=== PATIENT | male | born 1955 | race Caucasian/White ===

== ENCOUNTER 2018-12-06 09:12 | Inpatient (IN) ==
[2018-11-29 13:56] LABS: HEMATOCRIT 43.4 % (42.0-52.0); HEMOGLOBIN 14.7 g/dL (14.0-18.0); MCH 30.7 PG (27-31); MCHC 33.9 g/dL (33-37); MCV 90.6 FL (81-99); MPV 8.9 FL (7.4-10.4); RBC 4.79 XMIL (4.7-6.1); RDW 14.3 % (11.5-14.5); WBC 8.43 X1000 (4.8-10.8)
[2018-11-29 14:13] LABS: AGAP 11; BUN 10 mg/dL (8-22); CALCIUM 9.3 mg/dL (8.8-10.2); CHLORIDE 97 mmol/L (98-107); COSMO 285; CREATININE 0.6 mg/dL (0.7-1.2); ESTIMATED GFR > 60; GLUCOSE 255 mg/dL (70-104); POTASSIUM 4.1 mmol/L (3.5-5.1); SODIUM 139 mmol/L (136-145); TCO2 31 mmol/L (25-35)
[2018-12-06] MEDS ORDERED: NORCURON ONE (09:19)
[2018-12-06] MEDS ORDERED: QUELICIN (DOSE) ONE (09:19)
[2018-12-06] MEDS ORDERED: SODIUM CHLORIDE 0.9% 10 ML ONE (09:19)
[2018-12-06] MEDS ORDERED: DIPRIVAN 1% ONE (09:20)
[2018-12-06] MEDS ORDERED: REGLAN ONE (09:34)
[2018-12-06] MEDS ORDERED: PEPCID ONE (09:34)
[2018-12-06] MEDS ORDERED: LR 1,000 ML ONE (09:35)
[2018-12-06] MEDS ORDERED: INVANZ 1 GM/NS 1 GM/50 ML IVPB ONE (09:35)
[2018-12-06] MEDS ORDERED: ENTEREG ONE (09:35)
[2018-12-06] MEDS ORDERED: ZOFRAN ONE (09:55)
[2018-12-06] MEDS ORDERED: DECADRON ONE (09:55)
[2018-12-06] MEDS ORDERED: TORADOL ONE ×2 (09:55→12:10)
[2018-12-06] MEDS ORDERED: MARCAINE 0.5% ONE (10:33)
[2018-12-06] MEDS ORDERED: EXPAREL 1.3% ONE (10:33)
[2018-12-06] MEDS ORDERED: SODIUM CHLORIDE 0.9% ONE (10:35)
[2018-12-06] MEDS ORDERED: FENTANYL ONE (11:23)
[2018-12-06] MEDS ORDERED: ROBINUL ONE (12:23)
[2018-12-06] MEDS ORDERED: NEOSTIGMINE ONE (12:24)
[2018-12-06 13:01] LABS: URINE SOURCE CATH
[2018-12-06] MEDS ORDERED: NS 1,000 ML ONE (13:04)
[2018-12-06 13:13] LABS: BILIRUBIN URINE NEGATIVE (NEGATIVE); BLOOD URINE MODERATE (NEGATIVE); COLOR YELLOW; GLUCOSE URINE TRACE mg/dL (NEGATIVE); KETONE URINE 10 mg/dL (NEGATIVE); LEUKOCYTES URINE NEGATIVE (NEGATIVE); NITRITE URINE NEGATIVE (NEGATIVE); PH URINE 5.5; PROTEIN URINE 30 mg/dL (NEGATIVE); SP GRAVITY URINE 1.016; TURBIDITY URINE CLEAR (CLEAR); UR EPITHELIAL CELLS <10 /HPF (<10); URINE BACTERIA NEGATIVE /HPF; URINE RBC 20-40 /HPF (<10); URINE WBC <10 /HPF (<10); UROBILINOGEN URINE NORMAL (NORMAL)
[2018-12-06] MEDS ORDERED: MORPHINE ONE ×2 (13:14→13:17)
[2018-12-06] MEDS ORDERED: LOVENOX SUBQ SCH (13:51)
[2018-12-06] MEDS ORDERED: DILAUDID IV PRN (13:51)
[2018-12-06] MEDS ORDERED: VENTOLIN HFA INH PRN (13:51)
[2018-12-06] MEDS: OFIRMEV 1000 MG/ISOTONIC SOLN 1,000 MG/100 ML BOTTLE IV SCH ×2 (18:22→23:22)
[2018-12-06] MEDS: NS 1,000 ML IV SCH ×2 (18:25→22:26)
[2018-12-06] MEDS: PERIDEX MT SCH (22:25)
[2018-12-06] MEDS: CRESTOR PO SCH (22:25)
[2018-12-06 22:55] LABS: HEMOGLOBIN 9.3 g/dL (14.0-18.0)
[2018-12-07] MEDS: NS 1,000 ML IV SCH ×4 (01:30→23:47)
[2018-12-07] MEDS: ZOFRAN IV PRN (01:35)
[2018-12-07 02:59] LABS: HEMATOCRIT 29.7 % (42.0-52.0); HEMOGLOBIN 9.9 g/dL (14.0-18.0)
[2018-12-07] MEDS ORDERED: SODIUM CHLORIDE 0.9% INJ ONE (03:21)
[2018-12-07] MEDS ORDERED: PROTONIX IV ONE (03:21)
--- NOTE | 2018-12-07 03:44 | OPERATIVE NOTE ---
PROCEDURE DATE: 12/06/2018 PROCEDURE PERFORMED: Open right hemicolectomy. SURGEON: Chucky Greer MD IRRIGATION EQUIPMENT MECHANIC: Enrico Johnson RN. PREOPERATIVE DIAGNOSIS: Polyp at the hepatic flexure. POSTOPERATIVE DIAGNOSIS: Polyp at the hepatic flexure. INDICATIONS FOR PROCEDURE: The patient is a 63-year-old sent to me by Dr. Laurent because of a large polyp at the hepatic flexure that she could not remove. It was inked. DESCRIPTION OF PROCEDURE: Satisfactory general endotracheal anesthesia was achieved. The abdomen was prepped and draped in a sterile fashion. A midline incision was made. We carried our incision through the subcutaneous tissue through the midline fascia, opening the fascia to the extent of the skin incision. Upon examining the colon the Dori ink area was identified in the proximal transverse colon near the hepatic flexure. We then incised the white line of Toldt mobilizing the retroperitoneal portion of the right colon bringing it up into the wound. We divided the omentum in its mid aspect, taking in to the mid aspect of the transverse colon. We entered the lesser sac and divided the greater omentum from the transverse colon toward the hepatic flexure, and we incised the hepatocolic ligament. We then chose a LEYDA 80-mm long blue cartridge and divided the transverse colon in its mid aspect at the level of the middle colic vessels. We then got a reload and divided the ilium also with a LEYDA 80 stapler. We then proceeded to divide the mesentery with the LigaSure, the major vessels were clamped and divided and suture ligated with 2-0 silk suture ligatures that included the ileocolic vessels and the right colic vessels. After that was accomplished and the mesentery was divided with the LigaSure, the right colon was handed off. We then laid the distal ilium next to the transverse colon and approximated them with 3-0 silk stitch, cut off the corners and then used again the LEYDA 80 blue cartridge to make a staple [id number] anastomosis. The open end of the bowel was then approximated with Allis and used a TA 90 blue cartridge to staple off the open end of the bowel. We inverted that staple line with interrupted 3-0 silks in a Lembert fashion, 1 additional 3-0 silk stitch was placed at the opposite end of the staple line. We changed gloves at this point and ridded ourselves of the contaminated instruments. We then closed the mesentery with 3-0 silk stitches. We returned the anastomosis and bowel inside the abdominal cavity including the residual omentum. Hemostasis was satisfactory in the right gutter. We then proceeded to close the peritoneum with a 2-0 chromic. We closed the fascia with a running #2 Prolene. The subcutaneous tissue was irrigated out and the skin was closed with jeff. A sterile dressing was applied. He tolerated the procedure satisfactorily and was sent to the recovery room in satisfactory condition. cc: MD Kaet Perez MD MTDD
[2018-12-07 04:12] LABS: HEMATOCRIT 29.3 % (42.0-52.0); HEMOGLOBIN 9.7 g/dL (14.0-18.0); MCH 30.5 PG (27-31); MCHC 33.1 g/dL (33-37); MCV 92.1 FL (81-99); RBC 3.18 XMIL (4.7-6.1); RDW 13.8 % (11.5-14.5); WBC 14.22 X1000 (4.8-10.8)
[2018-12-07] MEDS: OFIRMEV 1000 MG/ISOTONIC SOLN 1,000 MG/100 ML BOTTLE IV SCH ×2 (04:28→12:05)
[2018-12-07 04:41] LABS: INR 1.1; PROTIME 15.1 Seconds (11.0-16.0)
[2018-12-07 04:42] LABS: PTT 38.1 Seconds (22.3-41.8)
[2018-12-07 06:16] LABS: BASO# 0.02 X1000 (0.0-0.2); BASO% 0.1 % (0.0-0.8); HEMATOCRIT 28.2 % (42.0-52.0); HEMOGLOBIN 9.3 g/dL (14.0-18.0); LYMPH# 1.18 X1000 (1.2-3.4); LYMPH% 8.3 % (20.5-51.1); MCH 30.5 PG (27-31); MCV 92.5 FL (81-99); MONO% 9.9 % (1.7-9.3); MPV 9.3 FL (7.4-10.4); NEUT% 81.7 % (42.2-75.2); PLT 147 X1000 (130-400); RBC 3.05 XMIL (4.7-6.1); RDW 13.9 % (11.5-14.5)
[2018-12-07 06:50] LABS: AGAP 11; BUN 22 mg/dL (8-22); CALCIUM 7.2 mg/dL (8.8-10.2); CHLORIDE 106 mmol/L (98-107); COSMO 294; CREATININE 1.1 mg/dL (0.7-1.2); ESTIMATED GFR > 60; GLUCOSE 306 mg/dL (70-104); POTASSIUM 4.7 mmol/L (3.5-5.1); SODIUM 140 mmol/L (136-145); TCO2 23 mmol/L (25-35)
--- NOTE | 2018-12-07 08:14 | EKG Report ---
Test Performed on : 12/07/2018 03:39:10 AM Test Reason : Decreased BP Blood Pressure : / mmHG Vent. Rate : 091 BPM Atrial Rate : 091 BPM P-R Int : 142 ms QRS Dur : 080 ms QT Int : 378 ms P-R-T Axes : 045 053 029 degrees QTc Int : 464 ms Normal sinus rhythm. Normal ECG No previous ECGs available Confirmed by Dominga CHAVEZ, Messi Mckeon ([id number]) on 12/08/2018 10:40:28 AM
--- NOTE | 2018-12-07 09:02 | GENERAL SURGERY CONSULTATION ---
DATE: 12/07/2018 SUBJECTIVE: He has had some bloody bowel movements overnight, some marginal blood pressures. He has gotten a couple liters of fluid boluses with some marginal response. He is mentating well. He says he feels a little lightheaded, but denies any chest pain or shortness of breath currently. OBJECTIVE: Vital Signs: Pulse 90. Blood pressure systolics in the 90s. Urine output has been adequate. Abdomen: Soft. There is no peritonitis. Midline incision has minimal drainage. Integument: Warm and dry. There is no diaphoresis. LABORATORY DATA: Hematocrit was preoperatively 43. It was 28 postoperatively and is 29 now on second check. DIAGNOSTIC STUDIES: He has normal left ventricular function on an echocardiogram noted. He also had a stress test in July that shows no ischemia. ASSESSMENT AND PLAN: A 63-year-old gentleman likely bleeding from his anastomosis and had peritonitis on exam. His blood pressure improved following resuscitation. His last bowel movement was more dark and normal-appearing. Continue to monitor him closely with serial hematocrits. I have held his Lovenox in the morning. Continue his fluid resuscitation. He may ultimately require blood transfusion. I discussed this with the patient and his . Will check an EKG to make sure he does not have any cardiac etiology due to this. cc: MD Chucky Elizabeth MD
[2018-12-07] MEDS: PERIDEX MT SCH ×2 (12:04→20:08)
[2018-12-07] MEDS: ACTOS PO SCH ×2 (12:06→13:37)
[2018-12-07] MEDS: PRINIVIL PO SCH (13:37)
[2018-12-07] MEDS: CHANTIX PO SCH (14:34)
[2018-12-07] MEDS: ENTEREG PO SCH ×2 (14:34→20:09)
[2018-12-07] MEDS: DILAUDID IV PRN ×3 (16:33→23:10)
--- NOTE | 2018-12-07 19:09 | GENERAL SURGERY PROGRESS NOTE ---
DATE: 12/07/2018 Mr. Serrano is doing generally well. He is afebrile. Heart rate is 89 ,blood pressure 105/62. He has had no more rectal bleeding. His bandage of his abdominal wound is dry. Laboratory data shows his hemoglobin to be stable in the 9.7 range. Hematocrit 29. He has received some fresh frozen and has received some platelets. His urine output has been satisfactory. ASSESSMENT/PLAN: We will cut his IV rate down to 100. He is to stay on mechanical prophylaxis since we cannot give the Lovenox. We will recheck his hemoglobin tomorrow. Dr. Russell is to cover the weekend. cc: Chucky Greer MD
[2018-12-07] MEDS: CRESTOR PO SCH (20:09)
[2018-12-08] MEDS: DILAUDID IV PRN ×3 (02:36→22:41)
[2018-12-08 05:48] LABS: BASO# 0.06 X1000 (0.0-0.2); BASO% 0.7 % (0.0-0.8); EOS# 0.11 X1000 (0.0-0.7); EOS% 1.2 % (0.0-10.0); HEMATOCRIT 21.6 % (42.0-52.0); IMM GRAN# 0.03 X1000 (0.0-0.04); IMM GRAN% 0.3 % (0.0-0.5); LYMPH# 1.54 X1000 (1.2-3.4); LYMPH% 17.3 % (20.5-51.1); MCH 30.3 PG (27-31); MCHC 32.4 g/dL (33-37); MCV 93.5 FL (81-99); MONO# 0.73 X1000 (0.11-0.59); MONO% 8.2 % (1.7-9.3); NEUT# 6.42 X1000 (1.4-6.5); NEUT% 72.3 % (42.2-75.2); PLT 138 X1000 (130-400); RBC 2.31 XMIL (4.7-6.1); WBC 8.89 X1000 (4.8-10.8)
[2018-12-08 06:08] LABS: AGAP 9; BUN 11 mg/dL (8-22); CALCIUM 7.2 mg/dL (8.8-10.2); CHLORIDE 104 mmol/L (98-107); COSMO 277; CREATININE 0.5 mg/dL (0.7-1.2); ESTIMATED GFR > 60; GLUCOSE 173 mg/dL (70-104); POTASSIUM 3.9 mmol/L (3.5-5.1); SODIUM 137 mmol/L (136-145); TCO2 24 mmol/L (25-35)
[2018-12-08] MEDS: NS 1,000 ML IV SCH ×2 (10:10→22:49)
[2018-12-08] MEDS: ENTEREG PO SCH ×2 (10:10→23:29)
[2018-12-08] MEDS: PERIDEX MT SCH ×2 (10:10→23:29)
[2018-12-08] MEDS: CHANTIX PO SCH ×2 (10:11→10:13)
[2018-12-08] MEDS: PRINIVIL PO SCH (10:11)
[2018-12-08] MEDS: ACTOS PO SCH (10:11)
--- NOTE | 2018-12-08 12:54 | PROGRESS NOTE ---
DATE: 12/08/2018 SUBJECTIVE: Mr. Chele Serrano is now postop day 2 from an open right colon resection per Dr. Greer for a large polyp. His postoperative convalescence has been complicated by a lower GI bleed probably from the anastomosis. He is now anemic with a hematocrit of 21%. OBJECTIVE: His heart rate is 98, blood pressure is 98/54, O2 saturation 92% nasal cannula O2. He is afebrile on no antibiotics. He is awake, cooperative. He has been in a chair, but got a little bit dizzy. He still has a Van catheter tube in place. His white blood cell count is normal. Hematocrit is 21%, BUN and creatinine are 11 and 0.5. Coagulation studies are within normal limits. His abdominal incision is dressed. His abdomen is soft. PLAN: We will probably remove his Van catheter tube tomorrow morning as long as there is no evidence of lower GI bleed. He is on Entereg protocol. He has had no diet, but probably can start some clear liquids. We will follow his hematocrit. cc: MD Chucky Navas MD
[2018-12-08] MEDS ORDERED: SODIUM CHLORIDE 0.9% INJ ONE (14:07)
[2018-12-08 14:38] LABS: HEMATOCRIT 22.1 % (42.0-52.0); HEMOGLOBIN 7.2 g/dL (14.0-18.0)
--- NOTE | 2018-12-08 19:14 | PROGRESS NOTE ---
DATE: 12/08/2018 I was notified by the nurses this afternoon that Mr. Serrano had passed some more clots and blood per rectum. I knew that his hematocrit was low this morning, so we checked another hematocrit and actually it had not fallen, but I feel that he should get 2 units of packed red blood cells. I also spoke with Kevan Aguilar, our GI physician master control operator, about Mr. Serrano's ongoing lower GI bleed, probably from the stapled anastomosis status post open right hemicolectomy. I specifically spoke to him about possible colonoscopy in attempts at stopping this bleeding if it persists. He said that he will evaluate the patient. cc: MD Chucky Navas MD
[2018-12-08 20:04] LABS: BASO# 0.06 X1000 (0.0-0.2); BASO% 0.7 % (0.0-0.8); EOS# 0.12 X1000 (0.0-0.7); EOS% 1.3 % (0.0-10.0); HEMATOCRIT 26.4 % (42.0-52.0); HEMOGLOBIN 8.6 g/dL (14.0-18.0); IMM GRAN# 0.02 X1000 (0.0-0.04); IMM GRAN% 0.2 % (0.0-0.5); LYMPH# 1.49 X1000 (1.2-3.4); LYMPH% 16.5 % (20.5-51.1); MCH 28.8 PG (27-31); MCHC 32.6 g/dL (33-37); MCV 88.3 FL (81-99); MONO# 0.84 X1000 (0.11-0.59); MONO% 9.3 % (1.7-9.3); MPV 8.7 FL (7.4-10.4); NEUT# 6.49 X1000 (1.4-6.5); PLT 153 X1000 (130-400); RBC 2.99 XMIL (4.7-6.1); RDW 15.3 % (11.5-14.5); WBC 9.02 X1000 (4.8-10.8)
[2018-12-08] MEDS: CRESTOR PO SCH (23:29)
[2018-12-08] MEDS: PROTONIX IV SCH (23:30)
--- NOTE | 2018-12-09 00:22 | CONSULTATION ---
DATE OF CONSULTATION: 12/08/2018 REQUESTING PHYSICIAN: Bernadette Russell MD. PRIMARY LGSW: Kate Laurent MD. DICTATING PHYSICIAN: Kevan Aguilar MD REASON FOR CONSULTATION: GI bleeding. HISTORY OF PRESENT ILLNESS: Mr. Serrano is a 63-year-old male who was admitted on 12/06/2018 and had open right hemicolectomy by Dr. Greer. Postoperatively, he had rectal bleeding. Admission level hematocrit was not recorded although the hematocrit on 11/29/2017 was 43.4. He has dropped it down to 22.1. He will be given a blood transfusion today. He denies any nausea or vomiting. He had an EGD done and colonoscopy [address] Laurent when there was a large polyp noted in the hepatic flexure, for which he was sent for right hemicolectomy. PAST MEDICAL HISTORY: Bilateral carotid artery stenosis. Smoker. FAMILY HISTORY: Arthritis and asthma and heart disease in mother, diabetes in brother, and high cholesterol and hypertension in his brother. SOCIAL HISTORY: He drinks 7 soft drinks or more per day. No history of alcohol or drug abuse. He is an every-day smoker. He smokes 1 pack a day, started smoking at age 18. The patient is . He has a very supportive present at the bedside. PAST SURGICAL HISTORY: Cataract surgery, bilateral colon polyp removal and colonoscopy, tonsillectomy, vasectomy, and recent open right hemicolectomy on 12/06/2018. ALLERGIES: Penicillin. MEDICATIONS IN THE HOSPITAL: Crestor, Dilaudid, albuterol inhaler, alvimopan 200 mg p.o. b.i.d., chlorhexidine 15 mL mouthwash b.i.d., lisinopril 5 mg p.o. daily, normal saline 100 mL/hr, Zofran 4 mg IV q.6 hours as needed, Protonix 40 mg IV b.i.d., Actos 15 mg p.o. daily, Chantix 1 mg p.o. daily. The patient is currently on clear liquid diet. REVIEW OF SYSTEMS: Denies any current fevers, rigors, chills, chest pain, shortness of breath, dyspnea at rest. Denies any vomiting blood. Denies other abdominal discomfort from recent surgery. Denies any neurological complaints. PHYSICAL EXAMINATION: Vital signs: Temperature 98.4 degrees, pulse of 99, respiratory rate 19, blood pressure 118/49, saturating 92% on 3 L nasal cannula. Body weight of 257 pounds 7 ounces. BMI of 40.3 kg/m2. General appearance: Obese, lying in bed, in no acute distress. HEENT: Pale conjunctivae. No icterus. Pupils equal, reactive to light. Neck: Supple. Abdomen: Protuberant, obese. Midline surgical dressing. Discomfort in the abdomen from surgery. Extremities: No cyanosis, clubbing. Neurologic: He is awake, alert, oriented. LABORATORIES: Hemoglobin is 7.2, hematocrit 22.9, white count of 8.8, platelet count of 138,000. PT of 15.1, INR 1.1, PTT of 38.1. Sodium of 137, potassium 3.9, chloride 104, bicarb 24, anion gap 9, BUN of 11, creatinine of 0.5, glucose of 173, calcium 9.2. Urinalysis showed positive protein, positive blood, and positive ketones. IMPRESSION AND PLAN: 1. Gastrointestinal bleeding in post operative setting, suspect anastomotic/ suture line bleeding. 2. The patient is status post right hemicolectomy on 12/06/2018. 3. History of colon polyps. 4. Obesity. 5. Chronic smoker. 6. Anemia. RECOMMENDATIONS: 1. We will give the patient a clear liquid diet. We will type and cross and transfuse to keep the hematocrit more than 27% He jaqueline receive 2 units of blood transfusion now. We will check serial hematocrits and transfuse as needed. We will keep him on Protonix twice daily. 2. I have spoken with the patient and family with Dr. Russell. If the patient continues to bleed, then we may have to do endoscopic intervention in the form of colonoscopy. The colonoscopy in this setting has a high risk of causing anastomotic leak because of recent surgery. Risks benefits indication and alternatives to colonoscopy were explained to the patient and family and all questions were answered. If he continues to have hemorrhage and hemodynamic instability, then we may have to consider interventional radiology-directed angiography versus surgical intervention. 3. Above plan of care was discussed with the patient and family and all questions answered. Please call if any questions. I also spoke with Dr. Russell. Dr. Laurent will return on Monday to resume care. cc: MD Chucky Hardy MD Lynn R. Buckner, MD Lindsay Smith MTDD
[2018-12-09] MEDS ORDERED: DIPRIVAN 1% ONE ×2 (07:59→08:20)
[2018-12-09] MEDS ORDERED: XYLOCAINE-MPF 2% ONE (07:59)
[2018-12-09] MEDS ORDERED: FENTANYL ONE ×2 (08:08→08:11)
--- NOTE | 2018-12-09 10:06 | Diag Imaging Result Doc PS360 ---
EXAM: KUB ABDOMEN INDICATION: Post colonoscopy TECHNIQUE: 2 views COMPARISON: None. FINDINGS: There are a few mildly gas distended loops of small bowel suggesting possible mild postsurgical ileus. There are midline skin jeff indicating a recent prior laparotomy. No large volume free abdominal gas is appreciated given the limitations of a supine radiograph. IMPRESSION: Mildly gas distended loops of small bowel that probably represents a mild postsurgical ileus. Electronically signed by Edy Wei 12/09/2018 10:04 AM
--- NOTE | 2018-12-09 10:17 | OPERATIVE NOTE ---
PROCEDURE DATE: 12/09/2018 DICTATING PHYSICIAN: Dr. Russell. PRIMARY CARE DOCTOR: Dr. Laurent. PROCEDURE: 1. Ileal colonoscopy with hemostasis treating rectal bleeding. Required 4 weeks blood transfusion. 2. History of right open hemicolectomy done on 12/06/2018. 3. Anemia. POSTOPERATIVE DIAGNOSIS: 1. 1 is bleeding at the anastomosis suture line. This was treated with 4 hemoclips successfully, and there is a questionable remnant polyp or pseudopolyp at the anastomosis with overlying erythema and superficial ulceration. 2. Old blood throughout the colon was lavaged. Retroflexion in the rectum revealed internal hemorrhoids. ESTIMATED BLOOD LOSS: Minimal. COMPLICATIONS: None. ANESTHESIA: Monitored anesthesia care per the anesthesiologist. SPECIMENS: None. DESCRIPTION OF PROCEDURE IN DETAIL: After informed consent from the patient explaining the risks, benefits, indications, and alternatives to the procedure, the patient prepared for colonoscopy. The risks of the procedure, including infection, bleeding, pain, trauma to the surrounding structures, perforation, , were explained to the patient among others, and he acknowledged this and agreed to proceed. This is noted to the operating room. He was turned in a left lateral position. Rectal exam was performed, which were normal. No masses felt. No blood on the examining finger. The colonoscope was removed all the way to the anastomosis. The anastomosis was identified. There was evidence of a remnant polyp or a pseudopolyp. After anastomosis with overlying erythema and superficial ulceration, there was a suture line oozing noted. This was treated with 4 hemoclips placed successfully and hemostasis achieved. The terminal ilium appeared normal. The remaining colon had evidence of old blood with clots which was lavaged. Retroflexion in the rectum revealed internal hemorrhoids grade 2. The air was withdrawn. The patient tolerated the procedure well and was monitored in the OR in stable condition. Dr. Russell was present during the entire procedure. The patient was taken to the recovery room from the OR in stable condition. RECOMMENDATIONS: 1. Patient will be on ice chips today. 2. We will start him on previous medications. 3. We will start him on iron and multivitamin. 4. We will transfuse as needed to keep hematocrit more than 27%. 5. If the patient continues to have bleeding, then he may need surgical revision. 6. We will repeat the colonoscopy in 3 months to review the anastomosis site for any remnant polyps. 7. The above plans were discussed with the patient's family and all questions answered. Please call us with any further questions. cc: MD Chucky Hardy MD Lynn R. Buckner, MD Jeanette Keith, MD MTDD
--- NOTE | 2018-12-09 10:17 | PROGRESS NOTE ---
DATE: 12/09/2018 HISTORY: Mr. Serrano overnight continued a lower GI bleed. He has now had a total 4 units of packed red blood cells. I asked Dr. Aguilar to see him yesterday and Dr. Aguilar performed a colonoscopy this morning. I was present in the GI suite as he was performing this procedure. It appears that Mr. Serrano had some oozing from the stapled anastomosis. It was treated with 4 clips and I felt that these clips were helpful. After the procedure, he went back to his room. OBJECTIVE: General: He is awake. Abdomen: Distended but not overly tender. His incision seems to be healing well. Vital Signs: His heart rate is 82, blood pressure 136/51, O2 saturation 97%. He is afebrile. Genitourinary: He still has a Van catheter tube in place and we will leave that also. PLAN: We will just keep him on ice chips and water today, and follow him clinically, and follow his blood counts. We do not have him on Lovenox. cc: MD Chucky Navas MD
[2018-12-09] MEDS: NS 1,000 ML IV SCH ×2 (10:47→16:21)
[2018-12-09] MEDS: PERIDEX MT SCH ×2 (10:48→20:32)
[2018-12-09] MEDS: PROTONIX IV SCH ×2 (10:49→20:31)
[2018-12-09] MEDS: ENTEREG PO SCH ×2 (10:49→20:30)
[2018-12-09] MEDS: ACTOS PO SCH (10:49)
[2018-12-09 10:59] LABS: BASO# 0.04 X1000 (0.0-0.2); BASO% 0.4 % (0.0-0.8); EOS# 0.12 X1000 (0.0-0.7); EOS% 1.3 % (0.0-10.0); HEMATOCRIT 31.9 % (42.0-52.0); HEMOGLOBIN 10.6 g/dL (14.0-18.0); IMM GRAN# 0.03 X1000 (0.0-0.04); IMM GRAN% 0.3 % (0.0-0.5); LYMPH# 0.86 X1000 (1.2-3.4); LYMPH% 9.5 % (20.5-51.1); MCH 29.2 PG (27-31); MCHC 33.2 g/dL (33-37); MCV 87.9 FL (81-99); MONO# 0.75 X1000 (0.11-0.59); MONO% 8.3 % (1.7-9.3); MPV 9.1 FL (7.4-10.4); NEUT# 7.27 X1000 (1.4-6.5); NEUT% 80.2 % (42.2-75.2); PLT 148 X1000 (130-400); RBC 3.63 XMIL (4.7-6.1); RDW 15.1 % (11.5-14.5); WBC 9.07 X1000 (4.8-10.8)
[2018-12-09 13:47] LABS: BASO# 0.04 X1000 (0.0-0.2); BASO% 0.5 % (0.0-0.8); EOS# 0.12 X1000 (0.0-0.7); EOS% 1.4 % (0.0-10.0); HEMATOCRIT 30.8 % (42.0-52.0); HEMOGLOBIN 10.3 g/dL (14.0-18.0); IMM GRAN# 0.02 X1000 (0.0-0.04); IMM GRAN% 0.2 % (0.0-0.5); LYMPH# 1.11 X1000 (1.2-3.4); LYMPH% 13.2 % (20.5-51.1); MCH 29.3 PG (27-31); MCHC 33.4 g/dL (33-37); MCV 87.7 FL (81-99); MONO# 0.64 X1000 (0.11-0.59); MONO% 7.6 % (1.7-9.3); MPV 8.7 FL (7.4-10.4); NEUT# 6.46 X1000 (1.4-6.5); NEUT% 77.1 % (42.2-75.2); PLT 156 X1000 (130-400); RBC 3.51 XMIL (4.7-6.1); WBC 8.39 X1000 (4.8-10.8)
[2018-12-09] MEDS: CHANTIX PO SCH (14:21)
[2018-12-09] MEDS: PRINIVIL PO SCH (14:22)
[2018-12-09 19:49] LABS: BASO# 0.05 X1000 (0.0-0.2); BASO% 0.6 % (0.0-0.8); EOS# 0.19 X1000 (0.0-0.7); EOS% 2.2 % (0.0-10.0); HEMATOCRIT 30.9 % (42.0-52.0); HEMOGLOBIN 10.4 g/dL (14.0-18.0); IMM GRAN# 0.02 X1000 (0.0-0.04); IMM GRAN% 0.2 % (0.0-0.5); LYMPH# 1.55 X1000 (1.2-3.4); LYMPH% 18.2 % (20.5-51.1); MCH 29.8 PG (27-31); MCHC 33.7 g/dL (33-37); MCV 88.5 FL (81-99); MONO# 0.86 X1000 (0.11-0.59); MONO% 10.1 % (1.7-9.3); MPV 8.8 FL (7.4-10.4); NEUT# 5.85 X1000 (1.4-6.5); NEUT% 68.7 % (42.2-75.2); PLT 167 X1000 (130-400); RBC 3.49 XMIL (4.7-6.1); WBC 8.52 X1000 (4.8-10.8)
[2018-12-09] MEDS: CRESTOR PO SCH (20:30)
[2018-12-09] MEDS: ICAR-C PO SCH (20:30)
[2018-12-09] MEDS: DILAUDID IV PRN (20:31)
[2018-12-10 02:29] LABS: BASO# 0.04 X1000 (0.0-0.2); BASO% 0.5 % (0.0-0.8); EOS# 0.22 X1000 (0.0-0.7); EOS% 2.7 % (0.0-10.0); HEMATOCRIT 31.2 % (42.0-52.0); HEMOGLOBIN 10.3 g/dL (14.0-18.0); IMM GRAN# 0.02 X1000 (0.0-0.04); IMM GRAN% 0.2 % (0.0-0.5); LYMPH# 1.39 X1000 (1.2-3.4); MCH 29.4 PG (27-31); MCV 89.1 FL (81-99); MONO# 0.72 X1000 (0.11-0.59); MONO% 8.8 % (1.7-9.3); MPV 8.4 FL (7.4-10.4); NEUT# 5.78 X1000 (1.4-6.5); NEUT% 70.8 % (42.2-75.2); PLT 172 X1000 (130-400); WBC 8.17 X1000 (4.8-10.8)
[2018-12-10] MEDS: NS 1,000 ML IV SCH ×2 (04:13→04:14)
[2018-12-10] MEDS: DILAUDID IV PRN ×2 (04:14→19:34)
[2018-12-10] MEDS ORDERED: SODIUM CHLORIDE 0.9% 10 ML ONE (07:16)
[2018-12-10 08:31] LABS: BASO# 0.04 X1000 (0.0-0.2); BASO% 0.5 % (0.0-0.8); EOS# 0.25 X1000 (0.0-0.7); EOS% 3.3 % (0.0-10.0); HEMATOCRIT 31.7 % (42.0-52.0); HEMOGLOBIN 10.5 g/dL (14.0-18.0); IMM GRAN# 0.04 X1000 (0.0-0.04); IMM GRAN% 0.5 % (0.0-0.5); LYMPH# 1.21 X1000 (1.2-3.4); LYMPH% 16.1 % (20.5-51.1); MCH 29.3 PG (27-31); MCHC 33.1 g/dL (33-37); MCV 88.5 FL (81-99); MONO# 0.64 X1000 (0.11-0.59); MONO% 8.5 % (1.7-9.3); MPV 8.5 FL (7.4-10.4); NEUT# 5.34 X1000 (1.4-6.5); NEUT% 71.1 % (42.2-75.2); PLT 188 X1000 (130-400); RBC 3.58 XMIL (4.7-6.1); RDW 14.9 % (11.5-14.5); WBC 7.52 X1000 (4.8-10.8)
[2018-12-10] MEDS: ICAR-C PO SCH ×2 (09:17→21:19)
[2018-12-10] MEDS: PERIDEX MT SCH ×2 (09:17→21:19)
[2018-12-10] MEDS: PROTONIX IV SCH ×2 (09:17→21:19)
[2018-12-10] MEDS: CENTRUM SILVER PO SCH (09:17)
[2018-12-10] MEDS: ENTEREG PO SCH ×2 (09:17→21:19)
[2018-12-10] MEDS: ACTOS PO SCH (09:17)
[2018-12-10] MEDS: PRINIVIL PO SCH (09:17)
[2018-12-10] MEDS: CHANTIX PO SCH (09:18)
[2018-12-10 16:09] LABS: BASO# 0.04 X1000 (0.0-0.2); BASO% 0.4 % (0.0-0.8); EOS# 0.25 X1000 (0.0-0.7); EOS% 2.7 % (0.0-10.0); HEMATOCRIT 32.1 % (42.0-52.0); HEMOGLOBIN 10.7 g/dL (14.0-18.0); IMM GRAN# 0.03 X1000 (0.0-0.04); IMM GRAN% 0.3 % (0.0-0.5); LYMPH# 1.17 X1000 (1.2-3.4); LYMPH% 12.8 % (20.5-51.1); MCH 29.4 PG (27-31); MCHC 33.3 g/dL (33-37); MCV 88.2 FL (81-99); MONO# 0.77 X1000 (0.11-0.59); MONO% 8.4 % (1.7-9.3); MPV 8.7 FL (7.4-10.4); NEUT# 6.89 X1000 (1.4-6.5); NEUT% 75.4 % (42.2-75.2); PLT 211 X1000 (130-400); RBC 3.64 XMIL (4.7-6.1); RDW 14.7 % (11.5-14.5); WBC 9.15 X1000 (4.8-10.8)
[2018-12-10] MEDS ORDERED: NS 1,000 ML IV SCH (17:45)
--- NOTE | 2018-12-10 18:50 | PROGRESS NOTE ---
DATE: 12/10/2018 DATE OF ROUNDS: 12/10/2018. SUBJECTIVE: The patient is a 63-year-old white male who was admitted for elective right hemicolectomy due to a large hepatic flexure polyp. Postop, he had rectal bleeding. He underwent endoscopy that was remarkable for bleeding at the anastomosis and residual polyp tissue, likely a second polyp. Today, he denies bleeding. He reports that he feels significantly better other than incisional abdominal pain. He is currently tolerating a clear liquid diet. He denies fevers, chills, nausea or vomiting. PHYSICAL EXAMINATION: Vital Signs: His blood pressure is 136/54, pulse 72, respirations 20, temp of 98.3. HEENT: Unremarkable. Pulmonary: Lungs are clear to auscultation with normal respiratory effort. Cardiovascular: Reveals regular rate and rhythm with no gallops or rubs. Abdomen: Soft with incisional tenderness. There are normoactive bowel sounds. There is no rebound or guarding. OBJECTIVE DATA: Reveals a hemoglobin of 10.7 with hematocrit of 32.1 and a white count of 9.15. He has 211,000 platelets. RECOMMENDATION: 1. Continue supportive care. 2. After discussion with Dr. Greer, we will advance his diet to a full liquid diet in the morning. 3. Continue Protonix 40 mg IV q.12 hours. 4. He will need an outpatient colonoscopy in approximately 3 to 6 months to remove the residual polyp tissue and to reassess the anastomosis. cc: MD Chucky Burrows MD Lindsay Smith
[2018-12-10] MEDS: CRESTOR PO SCH (21:19)
--- NOTE | 2018-12-10 21:50 | GENERAL SURGERY PROGRESS NOTE ---
DATE: 12/10/2018 It is 5:36 p.m. The events of the weekend are noted. Mr. Serrano says he has had no further bleeding since the colonoscopy yesterday. Today he is afebrile, heart rate 72, blood pressure 136/54. Denies any flatus or bowel movement today. White count 9000, hemoglobin 10.7, hematocrit 32. He has taken clear liquids this afternoon for the first time. The plan is to advance him to full liquids in the morning. We will remove his Van catheter tonight. cc: Chucky Greer MD
[2018-12-10 21:55] LABS: BASO# 0.05 X1000 (0.0-0.2); BASO% 0.6 % (0.0-0.8); EOS# 0.28 X1000 (0.0-0.7); EOS% 3.1 % (0.0-10.0); HEMATOCRIT 32.8 % (42.0-52.0); IMM GRAN# 0.04 X1000 (0.0-0.04); IMM GRAN% 0.4 % (0.0-0.5); LYMPH# 1.38 X1000 (1.2-3.4); LYMPH% 15.4 % (20.5-51.1); MCH 29.3 PG (27-31); MCHC 33.5 g/dL (33-37); MCV 87.5 FL (81-99); MONO# 0.69 X1000 (0.11-0.59); MONO% 7.7 % (1.7-9.3); MPV 8.9 FL (7.4-10.4); NEUT# 6.54 X1000 (1.4-6.5); NEUT% 72.8 % (42.2-75.2); PLT 227 X1000 (130-400); RBC 3.75 XMIL (4.7-6.1); RDW 14.6 % (11.5-14.5); WBC 8.98 X1000 (4.8-10.8)
[2018-12-10] MEDS: NORCO-10 PO PRN (22:44)
[2018-12-11 02:32] LABS: BASO# 0.03 X1000 (0.0-0.2); BASO% 0.4 % (0.0-0.8); EOS% 3.5 % (0.0-10.0); HEMATOCRIT 31.7 % (42.0-52.0); HEMOGLOBIN 10.6 g/dL (14.0-18.0); IMM GRAN# 0.04 X1000 (0.0-0.04); IMM GRAN% 0.5 % (0.0-0.5); LYMPH% 17.6 % (20.5-51.1); MCH 29.3 PG (27-31); MCHC 33.4 g/dL (33-37); MCV 87.6 FL (81-99); MONO# 0.72 X1000 (0.11-0.59); MONO% 8.5 % (1.7-9.3); MPV 8.5 FL (7.4-10.4); NEUT# 5.92 X1000 (1.4-6.5); NEUT% 69.5 % (42.2-75.2); PLT 229 X1000 (130-400); RBC 3.62 XMIL (4.7-6.1); RDW 14.8 % (11.5-14.5); WBC 8.51 X1000 (4.8-10.8)
--- NOTE | 2018-12-11 07:29 | GENERAL SURGERY PROGRESS NOTE ---
DATE: 12/11/2018 It is 7:15 in the morning. Mr. Serrano required an in-and-out catheterization during the night. He has had no further bleeding. He is afebrile, heart rate 78, blood pressure 137/55. The plan today is to start him on full liquids. I will get him a binder and we will start him on Flomax. cc: Chucky Greer MD
[2018-12-11 08:50] LABS: BASO# 0.03 X1000 (0.0-0.2); BASO% 0.3 % (0.0-0.8); EOS# 0.19 X1000 (0.0-0.7); EOS% 2.1 % (0.0-10.0); HEMATOCRIT 33.7 % (42.0-52.0); HEMOGLOBIN 11.2 g/dL (14.0-18.0); IMM GRAN# 0.06 X1000 (0.0-0.04); IMM GRAN% 0.7 % (0.0-0.5); LYMPH# 0.98 X1000 (1.2-3.4); MCH 29.2 PG (27-31); MCHC 33.2 g/dL (33-37); MONO# 0.65 X1000 (0.11-0.59); MONO% 7.3 % (1.7-9.3); MPV 8.5 FL (7.4-10.4); NEUT# 6.99 X1000 (1.4-6.5); NEUT% 78.6 % (42.2-75.2); PLT 233 X1000 (130-400); RBC 3.83 XMIL (4.7-6.1); RDW 14.8 % (11.5-14.5)
[2018-12-11] MEDS: ICAR-C PO SCH ×2 (09:56→20:05)
[2018-12-11] MEDS: PRINIVIL PO SCH (09:56)
[2018-12-11] MEDS: CENTRUM SILVER PO SCH (09:56)
[2018-12-11] MEDS: PERIDEX MT SCH ×2 (09:56→20:05)
[2018-12-11] MEDS: ACTOS PO SCH (09:56)
[2018-12-11] MEDS: ENTEREG PO SCH ×2 (09:56→20:05)
[2018-12-11] MEDS: CHANTIX PO SCH (09:56)
[2018-12-11] MEDS: PROTONIX IV SCH ×2 (09:57→20:05)
[2018-12-11] MEDS: FLOMAX PO SCH (10:04)
--- NOTE | 2018-12-11 12:33 | GASTROENTEROLOGY PROGRESS NOTE ---
DATE: 12/09/2018 SUBJECTIVE: The patient underwent for a diagnostic colonoscopy on December 09, which showed bleeding at the anastomosis suture line status post 4 clips. No acute events overnight. The patient denies nausea, vomiting, fevers, chest pain, shortness of breath. Reports abdominal pain at his incision line. Had small bowel movement yesterday, passing flatus. Tolerating clear liquids. Diet has been advanced to full liquids this morning. No rectal bleeding. OBJECTIVE: Vital signs: Temperature 98.3 degrees, heart rate of 77, respiratory rate of 20, blood pressure 138/54, O2 saturation 96% on 2 L nasal cannula. General: The patient is awake, alert, oriented, no acute distress, sitting upright in chair. HEENT: Anicteric. Moist mucous membranes. Neck: No lymphadenopathy. Cardiac: Regular rate and rhythm. No murmurs. Lungs: Decreased breath sounds at the bases. No crackles or wheezing. Abdomen: Midline incision intact, clean, and dry. Mild tenderness throughout. No rebound or guarding. Hypoactive bowel sounds. Lower Extremities: No clubbing, cyanosis, or edema. Neuro: Nonfocal. LABS: White count of 8.9, hemoglobin stable at 11.2, platelets of 233,000. ASSESSMENT AND PLAN: Mr. Serrano is a 63-year-old gentleman, who recently underwent right hemicolectomy on December 06 for a large polyp at the hepatic flexure complicated by lower gastrointestinal bleeding from anastomosis, status post diagnostic and therapeutic colonoscopy on December 09. His hemoglobin remains stable without need for transfusions. He is tolerating a diet and is currently having bowel movements. Hemoglobin is 10.6 this morning from 10.7 yesterday. 1. Lower gastrointestinal bleed as above. Continue to trend hemoglobin daily and transfuse as needed to maintain hemoglobin between 7 and 8, holding blood thinners, and anticoagulation. Recommend TEDs and SCDs for deep venous thrombosis prophylaxis. 2. Postoperative right hemicolectomy for a large polyp. Surgery following. Defer diet advancement to the surgical team. 3. Abdominal pain, likely postsurgical. Currently on analgesics p.r.n. We will start patient on MiraLAX bowel regimen for gastrointestinal prophylaxis. We will continue to follow. 4. Please call with any questions or concerns. cc: Chucky Greer MD
[2018-12-11] MEDS: NORCO-10 PO PRN ×2 (13:21→20:05)
[2018-12-11] MEDS: CRESTOR PO SCH (20:05)
[2018-12-12] MEDS: ZOFRAN IV PRN (04:48)
[2018-12-12] MEDS ORDERED: SODIUM CHLORIDE 0.9% 20 ML ONE (05:27)
[2018-12-12] MEDS ORDERED: AMARYL PO ONE (07:52)
[2018-12-12] MEDS: PRINIVIL PO SCH (08:16)
[2018-12-12] MEDS: CHANTIX PO SCH (08:16)
[2018-12-12] MEDS: ENTEREG PO SCH ×2 (08:16→21:08)
[2018-12-12] MEDS: FLOMAX PO SCH (08:16)
[2018-12-12] MEDS: PERIDEX MT SCH ×2 (08:16→21:07)
[2018-12-12] MEDS: ICAR-C PO SCH ×2 (08:16→21:08)
[2018-12-12] MEDS: GLUCOPHAGE XR PO SCH (08:16)
[2018-12-12] MEDS: CENTRUM SILVER PO SCH (08:17)
[2018-12-12] MEDS: PROTONIX IV SCH ×2 (08:17→21:08)
[2018-12-12] MEDS: ACTOS PO SCH (08:17)
[2018-12-12] MEDS: MIRALAX PO SCH (08:17)
--- NOTE | 2018-12-12 08:34 | GENERAL SURGERY PROGRESS NOTE ---
DATE: 12/12/2018 It is 7:50 in the morning. Mr. Serrano is improving. He is afebrile, heart rate 87, blood pressure 111/47. He is awake and alert. Slept okay. He is urinating satisfactorily. He did take some solid food last night. His wound looks fine. He is able to get up and go to the bathroom. His blood sugars have been up a little bit so we will restart all of his oral hypoglycemic medications. If all continues well today, we hopefully will discharge him this evening. cc: Chucky Greer MD
[2018-12-12] MEDS: NORCO-10 PO PRN ×2 (11:07→21:08)
[2018-12-12] MEDS: CRESTOR PO SCH (21:08)
[2018-12-13 08:02] VITALS: BP 127/61
[2018-12-13] MEDS: GLUCOPHAGE XR PO SCH (08:17)
[2018-12-13] MEDS: ENTEREG PO SCH (08:17)
[2018-12-13] MEDS: MIRALAX PO SCH (08:17)
[2018-12-13] MEDS: ACTOS PO SCH (08:17)
[2018-12-13] MEDS: PROTONIX IV SCH (08:17)
[2018-12-13] MEDS: FLOMAX PO SCH (08:17)
[2018-12-13] MEDS: ICAR-C PO SCH (08:17)
[2018-12-13] MEDS: PERIDEX MT SCH (08:17)
[2018-12-13] MEDS: CENTRUM SILVER PO SCH (08:17)
[2018-12-13] MEDS: CHANTIX PO SCH (08:17)
--- NOTE | 2018-12-13 09:29 | GENERAL SURGERY PROGRESS NOTE ---
DATE: 12/13/2018 TIME: 8:45 in the morning. Mr. Serrano is now 7 days after his right colectomy. This was complicated by bleeding requiring colonoscopy and clipping. Today, he is doing well. He is afebrile and his heart rate is 88 with blood pressure 127/61. His wounds are fine. He is eating. His bowels have moved. The plan is to discharge him and he will return to see me next week for staple removal. We discussed his diet and activity. cc: Chucky Greer MD
--- NOTE | 2018-12-25 05:33 | DISCHARGE SUMMARY ---
ADMISSION DATE: 12/06/2018 DISCHARGE DATE: 12/13/2018 PRIMARY DISCHARGE DIAGNOSIS: Adenomatous polyp at the hepatic flexure. OTHER DIAGNOSIS: Postoperative hemorrhage with blood-loss anemia. PRIMARY PROCEDURE: Open right colectomy. OTHER PROCEDURES: Include ileocolonoscopy with clipping of bleeding mucosa. HISTORY AND HOSPITAL COURSE: This 63-year-old was sent by Dr. Laurent for a polyp in the hepatic flexure that could not be removed colonoscopically. Following an outpatient prep, he was taken to the operating room on the and underwent an open right colectomy. Postoperatively, he dropped his hemoglobin, was given fluid. The next morning, his bleeding had ceased and his hemodynamics were stable. We cut his IV rate down to 100. We did stop his Lovenox and we will recheck his hemoglobin the next day. It was checked. It fell again so Dr. Aguilar was consulted. Because of his fall in hemoglobin, he was transfused. Following the intervention by Dr. Aguilar, he had no further bleeding. He was subsequently started on liquids and his diet was advanced. By 12/13/2018, he was tolerating solid food. His bowels were moving. His hemodynamics were good. He has had no further bleeding. It was felt he could be discharged home. He will return to the office in a week for staple removal. He was discharged home on his usual medications with Mcguffey 7.5 given as pain medication. His glucoses remained stable throughout this hospitalization. cc: Chucky Greer MD
== END 2018-12-13 12:15 | disposition home health service (06) | DRG 330 ==
LOC: SURHOLD 09:12 → 4N 13:16
PROVIDERS: ADMIT Surgery; ATTEND Surgery
CPT/HCPCS: 36430; 74000; 74018; 80048; 81001; 82948; 85014; 85018; 85025; 85027; 85610; 85730; 86850; 86900; 86901; 86920; 88307; 93005; 93010; 94761; 94799; A9270; C9113; C9290; J0131; J0330; J1100; J1170; J1335; J1650; J1885; J2270; J2405; J3010; J7030; J7120; P9016; P9017; P9035; S0020; S0164; XXXXX